=== PATIENT | female | born 1980 | race Caucasian/White ===

== ENCOUNTER 2018-07-11 12:25 | Inpatient (IN) | payer BC ==
--- NOTE | 2018-07-11 13:50 | OBADHP ---
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 Keyana Kelly Pelvic Type - PN: Adequate Extremities - PN: Normal Abdomen - PN: Normal Back - PN: Not Done Breast - PN: Not Done Lungs - PN: Not Done Heart - PN: Not Done Thyroid - PN: Not Done Neurologic - PN: Not Done HEENT - PN: Normal General - PN: Normal FHR - Baseline A Provider: 140 Comments, ACOG Physical Exam: Gestation - Est Wks by US: 39+5 Pool Provider: Negative Vital Signs Provider: Reviewed; Within Normal Limits NICHD Variability Prov Fetus A: Moderate 6-25bpm NICHD Accel Fetus A IP Provider: [id number] FHR Category Provider Fetus A: Category I NICHD Decel Fetus A IP Provider: None Dilatation, Provider: 1-2 Effacement, Provider: 50 Station, Provider: -3 Genitourinary Exam: Normal DTRs - PN: Not Done IP Adm Impression: Term, intrauterine IP Admit Plan: Admit to unit; Initiate labor induction protocol
[2018-07-11] MEDS ORDERED: Lactated Ringer's 1,000 ML IV SCH (14:15)
[2018-07-11 15:05] LABS: SQUAMOUS EPITHIAL 3 /hpf (0-5); URINE BACTERIA RARE (<OCC); URINE BILIRUBIN NEGATIVE (NEGATIVE); URINE BLOOD 1+ (NEGATIVE); URINE CLARITY Hazy (Clear); URINE COLOR Yellow (YELLOW); URINE GLUCOSE (UA) NORMAL (Normal); URINE LEUKOCYTE ESTERASE NEG Leu/uL (Negative); URINE PROTEIN NEGATIVE (NEGATIVE); URINE UROBILINOGEN NORMAL mg/dL (0.2-1.0)
[2018-07-11 15:06] LABS: BASO % 0.2 % (0.0-2.0); EOS # 0.1 K/uL (0.0-0.7); EOS % 0.6 % (0.0-4.0); HEMOGLOBIN 12.5 g/dL (11.0-16.0); LYMPH # 1.4 K/uL (1.0-4.3); MEAN CELL VOLUME 88.7 fL (81.0-99.0); MEAN CORPUSCULAR HGB CONC 33.9 g/dL (33.0-37.0); MEAN PLATELET VOLUME 9.2 fL (7.2-11.7); MONO # 0.7 K/uL (0.0-0.8); NEUT # 6.6 K/uL (1.8-7.0); NEUT % 75.2 % (50.0-75.0); RBC 4.16 Mil/uL (3.80-5.20); RED CELL DISTRIBUTION WIDTH 13.9 % (11.5-14.5); WHITE BLOOD COUNT 8.8 K/uL (4.8-10.8)
[2018-07-11 15:17] LABS: ALBUMIN 3.6 g/dL (3.5-5.0); BLOOD UREA NITROGEN 8 mg/dL (7-17); CALCIUM 9.2 mg/dl (8.6-10.4); GFR NON-AFRICAN AMERICAN > 60
[2018-07-11 15:18] LABS: ALT/SGPT 19 U/L (9-52); AST/SGOT 25 U/L (14-36)
--- NOTE | 2018-07-11 16:21 | OBADHP ---
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 GBS negative patient reports she is Rh negative, s/p rhogam A/P: 38 yo , post dates vitals stable, EFM and TOCO reviewed Plan for cytotec induction chart obtained from private office case reviewed with patients private physician Dr. Keyana AUGUSTINE Hx Assessment: The History has been Reviewed and is Current
--- NOTE | 2018-07-11 16:28 | OBPN ---
Datetime: 07/11/2018 16:22 IP Procedures Other: cytotec placement IP Progress Impression: Normal progression of labor; Reassuring heart rate IP Informed Consent Obtain: Induction of Labor IP Progress Plan: Continue present management; Induction FHR - Baseline A Provider: 135 IP Progress Note Comment: cytotec placed at 4:20pm EFM/[place] reviewd IOL plan explained to patient. all questions answered. Vital Signs Provider: Reviewed; Within Normal Limits NICHD Accel Fetus A IP Provider: [id number] FHR Category Provider Fetus A: Category I NICHD Variability Prov Fetus A: Moderate 6-25bpm NICHD Decel Fetus A IP Provider: None Datetime: 07/11/2018 13:37 Pool Provider: Negative Gestation - Est Wks by US: 39+5 Dilatation, Provider: 1-2 Effacement, Provider: 50 Station, Provider: -3
[2018-07-12] MEDS ORDERED: Oxytocin 30 UNIT 30 UNITS/500 ML BAG IV SCH (08:00)
[2018-07-12] MEDS ORDERED: Bupivacaine HCl/FentaNYL Cit 100 ML EPI ONE (08:19)
[2018-07-12] MEDS ORDERED: Bupivacaine 0.25% 20 ML INJ IJ ONE (09:13)
[2018-07-12] MEDS ORDERED: Oxytocin 30 UNIT 30 UNITS/500 ML BAG IV ONE (09:26)
--- NOTE | 2018-07-12 10:06 | OBPN ---
Datetime: 07/12/2018 10:03 IP Progress Impression: Normal progression of labor IP Progress Plan: Continue present management Membranes, Provider: Intact Contraction Comments Provider: q 2-3 FHR - Baseline A Provider: 145 Gestation - Est Wks by US: 39.6 Presentation-Admit: Vertex IP Progress Note Comment: pt seen adn examiend for progressin of labor reprots pain requesting epidural VSS EFM: cat i ANDRES: q 3 min A/P @ 39.6 wks GA in labr for epdiral pitocin augmetnatin cont toco adn efm cont curent magnent Vital Signs Provider: Reviewed; Within Normal Limits FHR Category Provider Fetus A: Category I NICHD Variability Prov Fetus A: Moderate 6-25bpm Dilatation, Provider: 2 Effacement, Provider: 50 Station, Provider: -3 NICHD Decel Fetus A IP Provider: None
--- NOTE | 2018-07-12 10:06 | OBHP ---
Datetime: 07/12/2018 10:03 Presentation-Admit: Vertex FHR - Baseline A Provider: 145 Membranes, Provider: Intact Contraction Comments Provider: q 2-3 Gestation - Est Wks by US: 39.6 Vital Signs Provider: Reviewed; Within Normal Limits NICHD Variability Prov Fetus A: Moderate 6-25bpm FHR Category Provider Fetus A: Category I NICHD Decel Fetus A IP Provider: None Dilatation, Provider: 2 Effacement, Provider: 50 Station, Provider: -3 Datetime: 07/11/2018 16:22 NICHD Accel Fetus A IP Provider: [id number] Datetime: 07/11/2018 13:37 IP Adm Impression: Term, intrauterine IP Admit Plan: Admit to unit; Initiate labor induction protocol Admit Comment, IP Provider: 38 with IUP at 39+5 weeks for IOL for post dates +FM +CTX - LOF - VB POB: G1: 2011 elective TOP with medical management G2: 2012 FT no complications 7lb G3: 2014 / demise due to chromosomal abnormalities G4: 2016 FT no complciations 9lb PGYN: LMP 10/26/16, denies STIs, normal paps per patietient PMH: denies PSurg: appendectomy at age 26 Meds: denies, no prenatals fam Hx: Mother diagnosed with breast cancer at age 57, father with unknown caridac problem social hx: denies smoking drinking and drug use NKDA Hep B negative, RPR negative, HIV negative. GBS negative patient reports she is Rh negative, s/p rhogam A/P: 38 yo , post dates vitals stable, EFM and TOCO reviewed Plan for cytotec induction chart obtained from private office case reviewed with patients private physician Dr. Keyana Trin[place] pt seen and examined poor obstetrical history admit for inductin of labor plan as above R trin[place] Pelvic Type - PN: Adequate Extremities - PN: Normal Abdomen - PN: Normal Back - PN: Not Done Breast - PN: Not Done Lungs - PN: Not Done Heart - PN: Not Done Thyroid - PN: Not Done Neurologic - PN: Not Done HEENT - PN: Normal General - PN: Normal Comments, ACOG Physical Exam: Pool Provider: Negative IP Hx Assessment: The History has been Reviewed and is Current IP Indication for Induction: Postterm Genitourinary Exam: Normal DTRs - PN: Not Done
--- NOTE | 2018-07-12 11:48 | OBDS ---
MATERNAL INFORMATION Provider Comments: pt was fully dilated and pushing, atrumatic, spontaneous deilvery of head, bhakti po sition, loose nuchal cord x 1 easily reduced. Atraumatic, spontaneous delivery of anterior followed b y posterior shoulder followed by delivery of the body. both oral and nasal passages of eleazar baby were bulb suctioned. umbilical cord was clamped and cut. baby hadned to mom on abdomen with rn assistance. Cord blood collected and sent x 2. Spontanesous delivery of intact placenta with membranes. Fundus firm, good hemosis, no coplications. Intact perineum. Live female infant agpgars 9,9 ebl 300ml no complicatins LABOR SUMMARY EDC: 07/13/2018 00:00 No. Babies in Womb: 1 LABOR INFORMATION Cervical Ripening Agents: Cytotec @ (Annotations: 25mcg PO) Group B Beta Strep: Negative MEMBRANES Membranes Rupture Method: Spontaneous Rupture of Membranes: 07/12/2018 10:48 Length of Rupture (hrs): 0.67 Amniotic Fluid Color: Clear Amniotic Fluid Amount: Moderate Amniotic Fluid Odor: Normal BABY A INFORMATION Delivery Date/Time: 07/12/2018 11:28 Method of Delivery: Vaginal Born in Route : No : N/A Forceps: N/A Vacuum Extraction: N/A Shoulder Dystocia : No SHOULDER DYSTOCIA BABY A Infant Delivery Date/Time: 07/12/2018 11:28 PRESENTATION/POSITION BABY A Presentation: Cephalic Cephalic Presentation: Vertex Vertex Position: Left Occipital Anterior INFANT INFORMATION BABY A Gestational Age at Delivery: 39.6 Gestational Status: Term Infant Outcome : Liveborn Infant Condition : Stable Sex: Female IDENTIFICATION/MEDS BABY A ID Band Number: [id number] Sensor Number: [id number] WEIGHT/LENGTH BABY A Birthweight (gms): 3415 Weight (lb): 7 Weight (oz): 8 Length Inches: 20.00 Length cms: 50.8 CORD INFORMATION BABY A No. Cord Vessels: 3 Nuchal Cord : Around Neck x1, Loose Cord Blood Taken: No
[2018-07-13] MEDS: Multiple Vitamins Tab PO SCH (09:21)
[2018-07-13 19:48] LABS: BASO # 0.1 K/uL (0.0-0.2); BASO % 0.8 % (0.0-2.0); EOS # 0.3 K/uL (0.0-0.7); EOS % 2.8 % (0.0-4.0); HEMOGLOBIN 12.2 g/dL (11.0-16.0); LYMPH # 2.3 K/uL (1.0-4.3); LYMPH % 23.7 % (20.0-40.0); MEAN CORPUSCULAR HEMOGLOBIN 29.9 pg (27.0-31.0); MEAN CORPUSCULAR HGB CONC 33.6 g/dL (33.0-37.0); MEAN PLATELET VOLUME 8.4 fL (7.2-11.7); MONO # 0.6 K/uL (0.0-0.8); MONO % 6.4 % (0.0-10.0); NEUT # 6.4 K/uL (1.8-7.0); NEUT % 66.3 % (50.0-75.0); NRBC % 0.1 % (0.0-2.0); RBC 4.08 Mil/uL (3.80-5.20); WHITE BLOOD COUNT 9.7 K/uL (4.8-10.8)
[2018-07-13] MEDS: Oxycodone/Acetaminophen 5/325 mg Tab PO PRN (20:35)
[2018-07-14] MEDS: Oxycodone/Acetaminophen 5/325 mg Tab PO PRN ×3 (00:52→10:21)
[2018-07-14] MEDS ORDERED: Influenza Vaccine 60 MCG/0.5 ML SYR (3 yr & up) IM ONE (10:00)
[2018-07-14] MEDS: Multiple Vitamins Tab PO SCH (10:20)
[2018-07-14 17:28] VITALS: BP 98/64; PULSE 83; RESP 18; TEMP 98; O2SAT 98
== END 2018-07-14 13:27 | disposition home or self-care (01) | DRG 806 ==
LOC: C.EROB 12:25 → C.4D 13:31 → C.4M 07-12 13:50
PROVIDERS: ADMIT Obstetrics & Gynecology; ATTEND Obstetrics & Gynecology
PROC: 3E0P7VZ Introduction of Hormone into Female Reproductive, Via Natural or Artificial Opening (ICD-10-PCS; 2018-07-11)
PROC: 10E0XZZ Delivery of Products of Conception, External Approach (ICD-10-PCS; principal; 2018-07-12)
DX: O48.0 Post-term pregnancy (principal); O36.0930 Maternal care for other rhesus isoimmunization, third trimester, not applicable or unspecified; O69.81X0 Labor and delivery complicated by cord around neck, without compression, not applicable or unspecified; Z3A.39 39 weeks gestation of pregnancy; Z23 Encounter for immunization; Z37.0 Single live birth